=== PATIENT | female | born 1965 | race Caucasian/White ===

== ENCOUNTER 2018-10-18 21:13 | Inpatient (IN) | payer SELFPAY ==
[~2018-10-18] VITALS: Ht 170.2 cm; Wt 39.8 kg
[2018-10-18 22:55] LABS: Urine Bacteria NONE SEEN /hpf (None Seen); Urine Blood 2+ /uL (Negative); Urine Mucus FEW (None Seen); Urine Specific Gravity 1.021 (1.001-1.035); Urine WBC 5 /hpf (0 - 5)
[2018-10-19] MEDS ORDERED: SODIUM CHLORIDE 0.9% 1,000 ML IV ONE ×2 (05:23)
[2018-10-19] MEDS ORDERED: ONDANSETRON HCL 4 MG/2 ML VIAL IV ONE (05:30)
[2018-10-19] MEDS ORDERED: KETOROLAC TROMETH 30 MG/ML 1ML VIAL IV ONE (05:30)
[2018-10-19 07:45] LABS: Eosinophils # (auto) 0 uL; Hemoglobin 13.7 g/dL (12.2-16.2); Mean Corpuscular Volume 88.5 fL (80.0-100.0)
[2018-10-19 07:47] LABS: Basophils # (auto) 0.1 uL; Basophils % (auto) 0.4 % (0.0-2.0); Lymphocytes # (auto) 0.9 uL; Lymphocytes % (auto) 5.4 % (10.0-50.0); Mean Corpuscular Hemoglobin 30.3 pg (28.0-32.0); Mean Corpuscular Hgb Conc. 34.3 g/dL (32.0-36.0); Monocytes # (auto) 0.3 uL; Monocytes % (auto) 2.1 % (0.0-12.0); Neutrophils % (auto) 92.1 % (37.0-80.0); Platelet Count (auto) 499 10^3/uL (140-450); Red Blood Cells 4.53 10^6/uL (4.0-5.20); Red Cell Distribution Width 12.5 % (11.8-14.3); White Blood Cell 16.3 10^3/uL (4.4-10.8)
[2018-10-19 07:51] LABS: Calcium 8.3 mg/dL (8.5-10.1)
[2018-10-19 07:54] LABS: Bilirubin, Total 0.8 mg/dL (0.2-1.0); Total Protein 7.6 g/dL (6.4-8.2)
[2018-10-19] MEDS: SODIUM CHLORIDE 0.9% 1,000 ML IV SCH ×2 (09:03→17:03)
[2018-10-19] MEDS ORDERED: NITROGLYCERIN 0.4 MG SL TAB SL PRN (09:15)
[2018-10-19] MEDS ORDERED: TAMSULOSIN HYDROCHLORIDE 0.4 MG CAP PO ONE (09:15)
[2018-10-19] MEDS ORDERED: ACETAMINOPHEN 500 MG TAB PO PRN (09:15)
[2018-10-19] MEDS: PANTOPRAZOLE 40 MG/10 ML VIAL INJ IV SCH ×2 (10:00→10:37)
[2018-10-19] MEDS: FAMOTIDINE (10MG/ML) 2ML VL IV SCH (11:15)
[2018-10-19] MEDS: MORPHINE SULF INJ 2 MG/ML SYRINGE 1ML IV PRN ×2 (17:02→23:04)
[2018-10-19] MEDS: ONDANSETRON HCL 4 MG/2 ML VIAL IV PRN ×2 (17:02→23:13)
[2018-10-19] MEDS ORDERED: MANNITOL 20% SOLN 100 gm/500ml 62.5 ML IV ONE (17:30)
[2018-10-19 17:41] VITALS: BP 111/71
[2018-10-19] MEDS: TAMSULOSIN HYDROCHLORIDE 0.4 MG CAP PO SCH (18:00)
--- NOTE | 2018-10-19 20:00 | NUR ---
Opening shift note: She was resting in bed with family bedside. She reports flank pain from the stone. i informed her that before they go the surgical route they want to see if she can pass the stone on her own. She reports pain but is manageable with medication. Advised her on the use of the call light. Will continue to monitor.
[2018-10-19] MEDS: HYDROcodone-ACET 5/325MG TAB PO PRN (20:12)
[2018-10-19 21:30] VITALS: BP 118/78
[2018-10-20] MEDS: SODIUM CHLORIDE 0.9% 1,000 ML IV SCH ×2 (01:51→08:24)
[2018-10-20] MEDS: HYDROcodone-ACET 5/325MG TAB PO PRN ×3 (02:10→16:56)
[2018-10-20] MEDS: MORPHINE SULF INJ 2 MG/ML SYRINGE 1ML IV PRN ×3 (04:13→20:12)
[2018-10-20 05:00] VITALS: BP 129/74
[2018-10-20 07:11] LABS: Basophils # (auto) 0.1 uL; Basophils % (auto) 0.8 % (0.0-2.0); Eosinophils # (auto) 0 uL; Eosinophils % (auto) 0.3 % (0.0-7.0); Hematocrit 33.6 % (36.0-46.0); Hemoglobin 11.5 g/dL (12.2-16.2); Lymphocytes # (auto) 3.8 uL; Mean Corpuscular Hemoglobin 30.7 pg (28.0-32.0); Mean Corpuscular Hgb Conc. 34.1 g/dL (32.0-36.0); Mean Corpuscular Volume 89.9 fL (80.0-100.0); Monocytes # (auto) 0.6 uL; Monocytes % (auto) 6.6 % (0.0-12.0); Neutrophils % (auto) 47.3 % (37.0-80.0); Nucleated Red Blood Cells % 0.1 %; Platelet Count (auto) 402 10^3/uL (140-450); Red Blood Cells 3.74 10^6/uL (4.0-5.20); Red Cell Distribution Width 12.9 % (11.8-14.3); White Blood Cell 8.4 10^3/uL (4.4-10.8)
[2018-10-20 07:43] LABS: BUN/Creatinine Ratio 18.3
[2018-10-20 08:00] VITALS: BP 127/70
[2018-10-20 09:00] VITALS: BP 127/70
[2018-10-20] MEDS ORDERED: cefTRIAXone 1GM/50ML D5W 50 ML IV SCH (09:00)
[2018-10-20] MEDS: FAMOTIDINE (10MG/ML) 2ML VL IV SCH (09:08)
[2018-10-20] MEDS: PANTOPRAZOLE 40 MG/10 ML VIAL INJ IV SCH (10:00)
[2018-10-20] MEDS ORDERED: FAMOTIDINE (10MG/ML) 2ML VL IV SCH (10:00)
[2018-10-20 13:00] VITALS: BP 128/82
[2018-10-20] MEDS: SOD CHL 0.45% 1,000 ML IV SCH ×2 (13:13→22:04)
[2018-10-20 17:00] VITALS: BP 129/88
[2018-10-20] MEDS: KETOROLAC TROMETH 30 MG/ML 1ML VIAL IV PRN (18:27)
[2018-10-20] MEDS: TAMSULOSIN HYDROCHLORIDE 0.4 MG CAP PO SCH (19:06)
[2018-10-20 22:00] VITALS: BP 107/70
[2018-10-21] MEDS: KETOROLAC TROMETH 30 MG/ML 1ML VIAL IV PRN (02:38)
[2018-10-21] MEDS: MORPHINE SULF INJ 2 MG/ML SYRINGE 1ML IV PRN ×5 (04:14→22:43)
[2018-10-21 05:00] VITALS: BP 112/72
[2018-10-21] MEDS: SOD CHL 0.45% 1,000 ML IV SCH ×3 (05:17→21:00)
[2018-10-21 08:00] VITALS: BP 123/70
[2018-10-21] MEDS: HYDROcodone-ACET 5/325MG TAB PO PRN ×3 (08:53→19:52)
[2018-10-21 09:00] VITALS: BP 123/70
[2018-10-21] MEDS: FAMOTIDINE (10MG/ML) 2ML VL IV SCH (09:41)
[2018-10-21 13:00] VITALS: BP 149/87
[2018-10-21] MEDS ORDERED: MANNITOL 20% SOLN 100 gm/500ml 62.5 ML IV ONE (14:15)
[2018-10-21] MEDS ORDERED: KETOROLAC TROMETH 30 MG/ML 1ML VIAL IV PRN (14:30)
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
[2018-10-21 17:00] VITALS: BP 121/83
[2018-10-21] MEDS: TAMSULOSIN HYDROCHLORIDE 0.4 MG CAP PO SCH (17:16)
--- NOTE | 2018-10-21 20:00 | NUR ---
OPENING NOTE RECEIVED REPORT FROM DAYSHIFT RN. ASSUMING ROLE OF CARE OF PATIENT AT THIS TIME. PATIENT SHOWING NO SIGN OF DISTRESS, SHORTNESS OF BREATH, AND PATIENT DENIES ANY PAIN AT THIS TIME. PATIENT EDUCATED ON PLAN OF CARE FOR THE NIGHT AND PATIENT VERBALIZED UNDERSTANDING. BED LOWERED, CALL LIGHT WITHIN REACH, AND PATIENT WILL BE ROUNDED ON EVERY HOUR AND NEEDED.
[2018-10-21 22:00] VITALS: BP 127/77
[2018-10-22] MEDS: MORPHINE SULF INJ 2 MG/ML SYRINGE 1ML IV PRN ×2 (02:15→10:19)
[2018-10-22 05:00] VITALS: BP 112/70
[2018-10-22] MEDS: SOD CHL 0.45% 1,000 ML IV SCH (05:00)
[2018-10-22] MEDS: HYDROcodone-ACET 5/325MG TAB PO PRN (06:13)
[2018-10-22 08:00] VITALS: BP 137/72
[2018-10-22] MEDS ORDERED: FAMOTIDINE 20 MG TAB PO SCH (10:00)
[2018-10-22 12:00] VITALS: BP 155/84
--- NOTE | 2018-10-22 12:43 | NUR ---
PATIENT DISCHARGED HOME ACCOMPANIED BY . ALL IV ACCESS DISCONTINUED. ALL DISCHARGE PAPERWORK SIGNED AND ALL DISCHARGE INSTRUCTIONS GIVEN
== END 2018-10-22 12:45 | disposition home or self-care (01) | DRG 694 ==
LOC: ER 21:18 → OVERFLOW 10-19 09:03 → EAST 10-19 15:45
PROVIDERS: ADMIT Nurse Practitioner Acute Care; ATTEND Internal Medicine
DX: N13.2 Hydronephrosis with renal and ureteral calculous obstruction (principal); R65.10 Systemic inflammatory response syndrome (SIRS) of non-infectious origin without acute organ dysfunction; E83.51 Hypocalcemia; Z82.49 Family history of ischemic heart disease and other diseases of the circulatory system; Z90.49 Acquired absence of other specified parts of digestive tract; Z82.5 Family history of asthma and other chronic lower respiratory diseases; Z72.0 Tobacco use
CPT/HCPCS: 36415; 74176; 80048; 80053; 81001; 85025; 87086; 96374; 96375; G0378; J0696; J1885; J2405; J3490